=== PATIENT | male | born 2000 | race Caucasian/White ===

== ENCOUNTER 2024-05-05 08:54 | Inpatient (IN) | payer MEDICAID, SELFPAY ==
[2024-05-05] VITALS (10 sets, daily range): BP systolic 107–132; BP diastolic 49–73; PULSE 55–85; RESP 12–20; TEMP 36.6–38.3; O2SAT 96–100; BMI 21.2
--- NOTE | ~2024-05-05 | CT_ITS ---
EXAMINATION: CT ABDOMEN AND PELVIS WITH CONTRAST CLINICAL INFORMATION: Right lower quadrant pain. COMPARISON: None available. TECHNIQUE: Multidetector volumetric images were obtained from the superior aspect of the liver through the pubic symphysis following administration 85 mL of Omnipaque 350 intravenous contrast. Sagittal and coronal reformatted images were obtained on the technologist's workstation. Oral contrast: No This CT examination was performed using dose optimization techniques as appropriate, variously including the following: *Automated exposure control *Adjustment of mA and/or kV according to patient size (this includes techniques or standardized protocols for targeted exams where dose is matched to indication/reason for exam; i.e. extremities or head) *Use of iterative reconstruction technique DLP: 356 mGy centimeter. FINDINGS: LUNG BASES: No acute airspace disease in the included lungs or gross nodules. LIVER, GALLBLADDER, AND BILIARY TREE: Liver measures 15 cm. No focal mass. Hepatic veins and portal veins and intrahepatic portion of the IVC are grossly patent. Gallbladder is contracted. No pericholecystic fluid collection or gallbladder wall thickening. No intrahepatic or extrahepatic biliary ductal dilatation. PANCREAS: No focal mass. No peripancreatic fluid collection. No main pancreatic ductal dilatation. SPLEEN: 11 cm. No focal mass. ADRENAL GLANDS: No nodular lesions. KIDNEYS AND URETERS: No hydronephrosis. No gross renal mass. No gross nephrolithiasis. BLADDER: An. Linear calcifications in the right lower pelvis just posterior to the bladder posterior eccentric location. GASTROINTESTINAL TRACT: Appendix measures 9 mm in the distal/tip segments with mucosal enhancement and or appendiceal edema pattern. No appendicolith. No peripheral enhancing fluid collection. No pneumoperitoneum. The appendix is retrocecal. Small amount of fluid in the posterior peritoneal cavity. No intestinal obstruction pattern. No pneumatosis intestinalis. ABDOMINAL WALL: No umbilical hernia. LYMPH NODES: No lymphadenopathy. VASCULAR: No aneurysm or dissection, abdominal aorta. PELVIC VISCERA: Normal size prostate gland. Prominent seminal vesicles. OSSEOUS STRUCTURES: Spondylolysis pars interarticularis at L5-S1 with a 1 mm anterolisthesis likely congenital. Spina bifida occulta, S1. CT/CT abdomen pelvis w IV con IMPRESSION: Acute nonruptured appendicitis, distal segment with small amount of free fluid, peritoneal cavity and no overt abscess or pneumoperitoneum. Appendix is retrocecal. 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 Discussed with the requesting nurse practitioner in the emergency department Dr. Елена Alvarenga, at 2:11 PM on May 05, 2024. Fleischner guidelines were followed. Electronically signed by: Chirag Zamora MD 05/05/2024 02:17 PM [facility] [place]
--- NOTE | 2024-05-05 12:13 | ED.ABDPAIN ---
HPI - Abdominal Pain General Chief Complaint: Abdominal Pain Stated Complaint: Stomach Pain Time Seen by Provider: 05/05/24 11:24 Source: patient Mode of arrival: ambulatory Limitations: no limitations History of Present Illness ED Provider: Елена Alvarenga NP HPI narrative: Patient is a 23-year-old male who presents emergency department for evaluation. Reports that he awoke this morning around 07:00 with sudden onset pain to the right of his belly button that has migrated towards the right lower abdomen. He thought that perhaps he needed to go to the bathroom, he had a normal movement without diarrhea or straining no recent constipation but this did not change his pain. He denies associated nausea or vomiting, no recent fevers or chills, no trauma or injury. Denies any symptoms. Denies concern for sexually transmitted infection, no associated scrotal pain or swelling. Related Data Allergies Allergy/AdvReac Type Severity Reaction Status Date / Time avocado Allergy Itching Verified 05/05/24 09:01 banana Allergy Itching Verified 05/05/24 09:01 Review of Systems Review of Systems Yes all other systems are reviewed and are negative PMFSH Past Medical History Attestation statement: The following information was validated with the patient. Source: old records reviewed Social History Social History Smoked in Last 30 Days: No Use of substances other than those prescribed or required for medical reasons: No Advance Directives: No Advance Directives Information Provided: Yes Do you have a plan to hurt others: No Plan Physical Exam ED Vital Signs: Vital Signs - 24 hr 05/05/24 08:58 05/05/24 13:34 Temperature 98 F 98.1 F Pulse Rate 78 76 Respiratory Rate 18 16 Blood Pressure 116/61 117/68 Pulse Oximetry 98 99 Oxygen Delivery Method Room Air Room Air BMI result Body Mass Index 21.2 Appearance: Alert.?Oriented to person, place and time. No acute distress.?Normal affect. Eyes: Pupils equal, round and reactive to light.? ENT: Pharynx normal.?? Neck: Normal inspection.? Neck supple.?? CVS: Heart sounds normal. Normal heart rate and rhythm.? Pulses normal.?? Respiratory: No respiratory distress.? Lung sounds clear to auscultation bilaterally?? Abdomen: Flat, with notably toned abdominal musculature, with right lower quadrant tenderness upon palpation, positive rebound tenderness at McBurney's point. Negative psoas sign. Negative Rovsing sign. No CVA tenderness. Normoactive bowel sounds. No pulsatile mass.?? Skin: Skin warm and dry.? Normal skin color.? Extremities: No lower extremity edema.? Neuro: Moves all extremities spontaneously. Sensation intact bilaterally. No focal neuro deficits. Ambulates with normal steady gait. Course Reevaluation(s) Reevaluation #1: Received critical call from radiology regarding acute retrocecal appendicitis. Patient made aware of these findings. Consulting with General surgery, Dr. Hyde. Time: 14:10 Medical Decision Making Medical Decision Making MDM Narrative: Patient is a 23-year-old male with no reported past medical history presents for evaluation of sudden onset abdominal pain this morning as per HPI, exam has notable right lower quadrant tenderness upon palpation with rebound tenderness concerning for appendicitis, no associated symptoms to suggest renal colic, hydronephrosis, ureteral calculi, pyelonephritis, no associated gastrointestinal symptoms to suggest colitis or obstruction. Obtaining CT of the abdomen and pelvis for further evaluation. Reviewed serum labs; mild leukocytosis 11,400 with left shift, no anemia or thrombocytopenia. No electrolyte derangement. No TOMAS. LFTs and lipase within normal range. CRP is normal. Differential Diagnosis Differential Diagnoses: The differential diagnosis associated with the presentation includes (See narrative above) Admission/Observation Consideration of admission/observation: Escalation of care including admission/observation considered (See narrative above ) Consult Healthcare Provider Management of the patient was discussed with: Software Sales Executive (See course narrative) Lab Data [facility] Lab Attestation statement: I reviewed the patient's lab results. 05/05/24 12:10 05/05/24 12:10 Labs: Lab Results 05/05/24 Range/Units 12:10 WBC 11.4 H (4.8-10.8) X10*3/uL RBC 5.49 (4.60-5.80) X10*6/uL Hgb 15.5 (14.0-18.0) g/dl Hct 46.3 (42.0-52.0) % MCV 84.3 (80.0-98.0) fL MCH 28.2 (27.0-33.0) pg MCHC 33.5 (31.0-36.0) g/dl RDW 13.0 (11.0-16.0) % Plt Count 191 (160-400) X10*3/uL MPV 10.8 (9.4-12.4) fL Immature Gran % (Auto) 0.3 (0.0-0.4) % Neut % (Auto) 82.7 H (45-73) % Lymph % (Auto) 6.2 L (20-40) % [place] % (Auto) 10.3 (2-11) % Eos % (Auto) 0.2 (0-4) % Baso % (Auto) 0.3 (0-2) % Lymph # (Auto) 0.7 L (1.2-4.9) X10*3/uL [place] # (Auto) 1.2 (0.1-1.2) X10*3/uL Eos # (Auto) 0.0 (0.0-0.4) X10*3/uL Baso # (Auto) 0.0 (0.0-0.2) X10*3/uL Abs Immat Gran (auto) 0.04 H (0.00-0.03) X10*3/uL Absolute Neuts (auto) 9.5 H (2.0-8.3) x10*3/uL Absolute Nucleated RBC 0.000 (0.0-0.012) X10*3/uL Nucleated RBC % (auto) 0.0 (0.0-0.2) /100WBC Sodium 136 (135-145) mmol/L Potassium 4.4 (3.3-5.1) mmol/L Chloride 105 (96-108) mmol/L Carbon Dioxide 21 L (22-29) mmol/L Anion Gap 14 (12-20) BUN 12 (9-16) mg/dL Creatinine 0.96 (0.5-1.4) mg/dL Estim Creat Clear Calc 122.2 Estimated GFR > 60 Random Glucose 79 (60-115) mg/dL Calcium 9.6 (8.4-10.2) mg/dL Total Bilirubin 0.3 (0.0-1.0) mg/dL AST 30 (5-37) U/L ALT 20 (0-40) U/L Alkaline Phosphatase 79 (39-117) U/L C-Reactive Protein 0.18 (< or = 0.50) mg/dL Total Protein 8.3 H (6.5-8.0) g/dL Albumin 4.8 (3.5-5.0) g/dL Lipase 12 (8-78) U/L Radiology Impression Discussion of test interpretation with radiology: I have reviewed the radiologist's reading. Radiologist Impression: CT/CT abdomen pelvis w IV con IMPRESSION: Acute nonruptured appendicitis, distal segment with small amount of free fluid, peritoneal cavity and no overt abscess or pneumoperitoneum. Appendix is retrocecal. 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 Medications Administered Discontinued Medications Generic Name Dose Route Start Last Admin Trade Name Freq PRN Reason Stop Dose Admin Sodium Chloride 1,000 mls @ 999 mls/hr 05/05/24 13:30 05/05/24 13:33 Ns IV 05/05/24 14:30 999 mls/hr .Q1H1M SANJEEV Administration Iohexol 100 ml 05/05/24 13:57 05/05/24 13:57 Iohexol 350 Mg/Ml 100 Ml Infus..Btl IV 05/05/24 13:58 85 ml ONCE ONE Administration Discharge Plan Discharge Print Language: Upper Sorbian
[2024-05-05 12:18] LABS: MANUAL DIFF FLAG NO
[2024-05-05 12:20] LABS: Basophils Percent Auto 0.3 % (0-2); Eosinophils Percent Auto 0.2 % (0-4); Hematocrit 46.3 % (42.0-52.0); Hemoglobin 15.5 g/dl (14.0-18.0); Imm Gran Abs Auto 0.04 X10*3/uL (0.00-0.03); Imm Gran Pct Auto 0.3 % (0.0-0.4); Lymphocytes Absolute Auto 0.7 X10*3/uL (1.2-4.9); Lymphocytes Percent Auto 6.2 % (20-40); Mean Corpuscular HGB Conc 33.5 g/dl (31.0-36.0); Mean Corpuscular Hemoglobin 28.2 pg (27.0-33.0); Mean Corpuscular Volume 84.3 fL (80.0-98.0); Mean Platelet Volume 10.8 fL (9.4-12.4); Monocytes Absolute Auto 1.2 X10*3/uL (0.1-1.2); Monocytes Percent Auto 10.3 % (2-11); Neutrophils Absolute Auto 9.5 x10*3/uL (2.0-8.3); Neutrophils Percent Auto 82.7 % (45-73); Platelet Count 191 X10*3/uL (160-400); Red Blood Count 5.49 X10*6/uL (4.60-5.80); White Blood Count 11.4 X10*3/uL (4.8-10.8)
[2024-05-05 12:36] LABS: Alanine Aminotransferase 20 U/L (0-40); Albumin Level 4.8 g/dL (3.5-5.0); Alkaline Phosphatase 79 U/L (39-117); Anion Gap 14 (12-20); Aspartate Amino Transferase 30 U/L (5-37); Bilirubin Total 0.3 mg/dL (0.0-1.0); Blood Urea Nitrogen 12 mg/dL (9-16); Calcium 9.6 mg/dL (8.4-10.2); Carbon Dioxide 21 mmol/L (22-29); Chloride 105 mmol/L (96-108); Creatinine Clr Calc Pharmacy 122.2; Estimated Glomerular Filt Rate > 60; Glucose Random 79 mg/dL (60-115); Lipase 12 U/L (8-78); Potassium 4.4 mmol/L (3.3-5.1); Sodium 136 mmol/L (135-145); Total Protein 8.3 g/dL (6.5-8.0)
[2024-05-05 13:01] LABS: C Reactive Protein 0.18 mg/dL (< or = 0.50)
[2024-05-05] MEDS: 0.9 % Sodium Chloride 1,000 ML 999 ML IV (13:33)
--- NOTE | 2024-05-05 13:40 | PC.NURSE ---
PT Received IV, 20G in right AC pt medicated per MAY, waiting on CT scan.
[2024-05-05] MEDS: iohexoL 350 MG/ML 100 ML INFUS..BTL IV (13:57)
[2024-05-05] MEDS: cefTRIAXone sodium 1 GM VIAL IVPUSH (15:09)
[2024-05-05] MEDS: metroNIDAZOLE/NS 500 MG/100 ML PIGGYBACK 100 MG IV (15:32)
[2024-05-05 15:33] LABS: Lactic Acid 1.5 mmol/L (0.5-2.0)
--- NOTE | 2024-05-05 15:36 | P.HPGS_ITS ---
History of Present Illness History of Present Illness Date of Service: 05/05/24 Chief complaint: Stomach Pain Narrative: Danish Dukes is a 23 year old male with abdominal pain who comes in after it started this morning. It started more in the epigastric area in his now moved down to the lower right quadrant. No significant nausea or vomiting he felt like he had maybe a low-grade temperature. He was fine yesterday went to bed fine no sick contacts no unusual diet. Here his white count is little elevated and CT scan shows a retrocecal appendix with an inflamed tip. No fecaliths noted. Otherwise pretty healthy no previous surgical history of concern Review of Systems Review of Systems: Yes all other systems are reviewed and are negative PMFSH Social History Social History Smoked in Last 30 Days: No Use of substances other than those prescribed or required for medical reasons: No Advance Directives: No Advance Directives Information Provided: Yes Do you have a plan to hurt others: No Plan Meds Allergies Allergy/AdvReac Type Severity Reaction Status Date / Time avocado Allergy Itching Verified 05/05/24 09:01 banana Allergy Itching Verified 05/05/24 09:01 Active Medications: Current Medications Acetaminophen (Acetaminophen 325 Mg Tablet) 650 mg PO Q6H PRN PRN Reason: Pain, Mild 1-3,fever,headache Calcium Carbonate (Calcium Carbonate 750 Mg Tab.Chew) 750 mg PO Q4H PRN PRN Reason: Heartburn Metronidazole (Flagyl) 500 mg in 100 mls @ 100 mls/hr IV ONCE ONE Stop: 05/05/24 15:43 Last Admin: 05/05/24 15:32 Dose: 100 mls/hr Magnesium Hydroxide (Milk Of Magnesia 30 Ml Oral.Susp) 30 ml PO DAILY PRN PRN Reason: Constipation Melatonin (Melatonin 3 Mg Tablet) 6 mg PO BEDTIME PRN PRN Reason: Insomnia Sodium Chloride (0.9 % Sodium Chloride Flush 3 Ml Syringe) 3 ml IVFLUSH QSHIFT SANJEEV Physical Exam Vital Signs: Vital Signs: Last Vital Signs Temp 98.1 F 05/05/24 13:34 Pulse 76 05/05/24 13:34 Resp 16 05/05/24 13:34 BP 117/68 05/05/24 13:34 Pulse Ox 99 05/05/24 13:34 O2 Del Method Room Air 05/05/24 13:34 BMI result Body Mass Index 21.2 Const: General: cooperative, healthy appearing, comfortable and no acute distress Orientation/consciousness: patient oriented x3 Resp: Other: Lungs are clear Effort & Inspection: normal respiratory effort Cardio: Rate: regular rate Rhythm: regular rhythm GI: Other: Abdomen is soft nondistended tender in the right lower quadrant no guarding no rebound no peritoneal signs active bowel sounds no masses Skin: General skin exam: no rashes or lesions noted Neuro: General: patient oriented x3 Extrem: General: Yes full ROM Psych: Appearance: grossly normal Mental Status: mental status grossly nor mal Speech and movement: Normal speech and movement present Affect: normal affect Attitude: cooperative Thought process: Normal thought process present Results Results Labs: Short CBC 05/05/24 Range/Units 12:10 WBC 11.4 H (4.8-10.8) X10*3/uL Hgb 15.5 (14.0-18.0) g/dl Hct 46.3 (42.0-52.0) % Plt Count 191 (160-400) X10*3/uL BMP 05/05/24 12:10 Sodium 136 Potassium 4.4 Chloride 105 Carbon Dioxide 21 L BUN 12 Creatinine 0.96 Calcium 9.6 Liver Function 05/05/24 Range/Units 12:10 Total Bilirubin 0.3 (0.0-1.0) mg/dL AST 30 (5-37) U/L ALT 20 (0-40) U/L Alkaline Phosphatase 79 (39-117) U/L Albumin 4.8 (3.5-5.0) g/dL Abdomen CT scan report/results: report reviewed and image reviewed CT scan - pelvis: report reviewed and image reviewed Additional studies: MR#: [id number] : 2000 Acct:[id number] Age/Sex: 23 / M ADM Date: 05/05/24 Loc: HO.ED Attending Dr: Ordering Physician: Елена Alvarenga CNP Date of Service: 05/05/24 Procedure(s): CT abdomen pelvis w IV con Accession Number(s): [id number] cc: Елена Alvarenga CNP; Physician,None ~ Report Number: [id number]: Total DLP = 356.00 mGy-cm EXAMINATION: CT ABDOMEN AND PELVIS WITH CONTRAST CLINICAL INFORMATION: Right lower quadrant pain. COMPARISON: None available. TECHNIQUE: Multidetector volumetric images were obtained from the superior aspect of the liver through the pubic symphysis following administration 85 mL of Omnipaque 350 intravenous contrast. Sagittal and coronal reformatted images were obtained on the technologist's workstation. Oral contrast: No This CT examination was performed using dose optimization techniques as appropriate, variously including the following: *Automated exposure control *Adjustment of mA and/or kV according to patient size (this includes techniques or standardized protocols for targeted exams where dose is matched to indication/reason for exam; i.e. extremities or head) *Use of iterative reconstruction technique DLP: 356 mGy centimeter. FINDINGS: LUNG BASES: No acute airspace disease in the included lungs or gross nodules. LIVER, GALLBLADDER, AND BILIARY TREE: Liver measures 15 cm. No focal mass. Hepatic veins and portal veins and intrahepatic portion of the IVC are grossly patent. Gallbladder is contracted. No pericholecystic fluid collection or gallbladder wall thickening. No intrahepatic or extrahepatic biliary ductal dilatation. PANCREAS: No focal mass. No peripancreatic fluid collection. No main pancreatic ductal dilatation. SPLEEN: 11 cm. No focal mass. ADRENAL GLANDS: No nodular lesions. KIDNEYS AND URETERS: No hydronephrosis. No gross renal mass. No gross nephrolithiasis. BLADDER: An. Linear calcifications in the right lower pelvis just posterior to the bladder posterior eccentric location. GASTROINTESTINAL TRACT: Appendix measures 9 mm in the distal/tip segments with mucosal enhancement and or appendiceal edema pattern. No appendicolith. No peripheral enhancing fluid collection. No pneumoperitoneum. The appendix is retrocecal. Small amount of fluid in the posterior peritoneal cavity. No intestinal obstruction pattern. No pneumatosis intestinalis. ABDOMINAL WALL: No umbilical hernia. LYMPH NODES: No lymphadenopathy. VASCULAR: No aneurysm or dissection, abdominal aorta. PELVIC VISCERA: Normal size prostate gland. Prominent seminal vesicles. OSSEOUS STRUCTURES: Spondylolysis pars interarticularis at L5-S1 with a 1 mm anterolisthesis likely congenital. Spina bifida occulta, S1. CT/CT abdomen pelvis w IV con IMPRESSION: Acute nonruptured appendicitis, distal segment with small amount of free fluid, peritoneal cavity and no overt abscess or pneumoperitoneum. Appendix is retrocecal. 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 Discussed with the requesting nurse practitioner in the emergency department Dr. Елена Alvarenga, at 2:11 PM on May 05, 2024. Fleischner guidelines were followed. Electronically signed by: Chirag Zamora MD 05/05/2024 02:17 PM EST Dictated By: Chirag Miranda MD Signed By: <Electronically signed by Chirag Fernández MD in OV> 05/05/24 1417 DD/ 1344 TD/TT: 05/05/24 1401 Manager Of Operations: Assessment and Plan (1) Acute appendicitis: Status: Acute Plan 23-year-old male with right lower quadrant pain elevated white count CT scan showing retrocecal appendix with tip inflamed plan is to carry out laparoscopic appendectomy NPO IV fluids and IV antibiotics. Risks and benefits were discussed with the patient including but not limited to bleeding infection bowel injury abscess stump leak and despite this he wishes to proceed. We will plan on doing this this afternoon. Hopefully he can be discharged home either later or in the morning. Quality Stroke Does the patient have a stroke diagnosis?: No VTE Prior VTE?: No VTE Risk Level:: Surgical - low VTE Device Contraindication: N/A - Device Ordered VTE Drug Contraindication: Treatment Not Indicated Procedures Date of Service Date of Service: 05/05/24
[2024-05-05 15:51] LABS: Appearance Urine Clear; Color Urine Yellow; Glucose Urine UA Negative (Negative); Leukocyte Esterase Urine Negative (Negative); Nitrite Urine Negative (Negative); PH 6.5 (5.0-9.0); Specific Gravity - Urine >= 1.030 (1.005-1.025); Urine Blood Negative (Negative); Urine Ketones 15 mg/dL (Negative); Urine Protein Negative (Neg-Trace)
--- NOTE | 2024-05-05 16:00 | PC.NURSE ---
Patient in preop. Ate three packages of saltines at around 1300. Dr. Gonzales made aware. Per Dr. Hyde, surgical procedure can not be postponed.
--- NOTE | 2024-05-05 16:14 | P.CONAN_ITS ---
HPI - Anesthesia Eval Consult details Narrative: For lap appendectomy PMFSH Active Problems Active Problems: All Active Problems Acute appendicitis (Acute) Past Medical History Medical History (Updated 05/05/24 @ 15:53 by Natty Lira RN) Asthma Family History Family history of problems with anesthesia: No Surgical History Surgical History (Updated 05/05/24 @ 15:52 by Natty Lira RN) No pertinent past surgical history History of Problems with Anesthesia: No Social History Social History Are you a primary senior care provider to a significant other at home: No Do you presently have visiting nurse or other home services: No Patient Tobacco Use Status: Former Tobacco user Tobacco use type: Cigarette Years Smoked: 0.5 Smoked in Last 30 Days: No Use of substances other than those prescribed or required for medical reasons: No Have you been hit, kicked, punched, or otherwise hurt by someone within the past year? If so, by whom?: No Are you DNR?: No Advance Directives: No Advance Directives Information Provided: No Advance Directives on File: No Do you have a plan to hurt others: No Plan Recently lost weight without trying: No How much weight loss: Not applicable Eating poorly because of decreased appetite: No Nutrition screen score: 0 Nutrition Risks: No Nutritional Risk Poor oral hygiene: Yes (front tooth- small chip) Meds Allergies Allergy/AdvReac Type Severity Reaction Status Date / Time avocado Allergy Intermediate Itching Verified 05/05/24 15:51 banana Allergy Intermediate Itching Verified 05/05/24 15:51 Active Medications: Current Medications Acetaminophen (Acetaminophen 325 Mg Tablet) 650 mg PO Q6H PRN PRN Reason: Pain, Mild 1-3,fever,headache Calcium Carbonate (Calcium Carbonate 750 Mg Tab.Chew) 750 mg PO Q4H PRN PRN Reason: Heartburn Magnesium Hydroxide (Milk Of Magnesia 30 Ml Oral.Susp) 30 ml PO DAILY PRN PRN Reason: Constipation Melatonin (Melatonin 3 Mg Tablet) 6 mg PO BEDTIME PRN PRN Reason: Insomnia Sodium Chloride (0.9 % Sodium Chloride Flush 3 Ml Syringe) 3 ml IVFLUSH QSHIFT [facility] Home Medications ?Medication ?Instructions ?Recorded ?Confirmed ?Last Taken ?Type No Known Home Meds 05/05/24 05/05/24 Unknown History Exam Height,Weight and Vital Signs: Height 6 ft Weight 71 kg Last Vital Signs Temp 100.9 F H 02/07/25 16:00 Pulse 85 05/05/24 16:00 Resp 16 05/05/24 16:00 BP 132/73 05/05/24 16:00 Pulse Ox 97 05/05/24 16:00 O2 Del Method Room Air 05/05/24 16:00 Pertinent Lab Results Pertinent Lab Results: Laboratory Tests 05/05/24 05/05/24 05/05/24 12:10 15:07 15:34 WBC 11.4 H RBC 5.49 Hgb 15.5 Hct 46.3 MCV 84.3 MCH 28.2 MCHC 33.5 RDW 13.0 Plt Count 191 MPV 10.8 Immature Gran % (Auto) 0.3 Neut % (Auto) 82.7 H Lymph % (Auto) 6.2 L [place] % (Auto) 10.3 Eos % (Auto) 0.2 Baso % (Auto) 0.3 Lymph # (Auto) 0.7 L [place] # (Auto) 1.2 Eos # (Auto) 0.0 Baso # (Auto) 0.0 Abs Immat Gran (auto) 0.04 H Absolute Neuts (auto) 9.5 H Absolute Nucleated RBC 0.000 Nucleated RBC % (auto) 0.0 Sodium 136 Potassium 4.4 Chloride 105 Carbon Dioxide 21 L Anion Gap 14 BUN 12 Creatinine 0.96 Estim Creat Clear Calc 122.2 Estimated GFR > 60 Random Glucose 79 Lactic Acid 1.5 Calcium 9.6 Total Bilirubin 0.3 AST 30 ALT 20 Alkaline Phosphatase 79 C-Reactive Protein 0.18 Total Protein 8.3 H Albumin 4.8 Lipase 12 Urine Color Yellow Urine Appearance Clear Urine pH 6.5 Ur Specific [place] >= 1.030 H Urine Protein Negative Urine Glucose (UA) Negative Urine Ketones 15 Urine Blood Negative Urine Nitrite Negative Ur Leukocyte Esterase Negative Airway Mallampati Class: II TM Dist: >3cm Neck ROM: Full Loose/Missing/Broken Teeth: No Heart: ok Lungs: ok Assessment and Plan Assessment Anesthesia Assessment: Anesthesia Plan Discussed and Chart Reviewed Final Anesthetic Review Family History of Problems with Anesthesia: No History of Problems with Anesthesia: No NPO: No ASA Class: II and Emergency Final Preanesthetic Review: No Changes in Pt Med Stat, Meds/Allgs Chart Reviewed, Consent Obtained/Reviewed and Anes Risks/Benef Reviewed Patient Risk: Intermediate Procedure Risk: Intermediate Anesthetic Plan Anesthetic Plan: GA and Agree w/ Assess. and Plan Disposition: Standard PACU
--- NOTE | 2024-05-05 16:16 | ED.ABDPAIN ---
HPI - Abdominal Pain General Chief Complaint: Abdominal Pain Stated Complaint: Stomach Pain Time Seen by Provider: 05/05/24 11:24 Source: patient Mode of arrival: ambulatory Limitations: no limitations History of Present Illness ED Provider: rashard perez np. HPI narrative: This is a second note, on review of medical record it appears as though the initial note that was written somehow was canceled/deleted. Patient is a 23-year-old male presents emergency department for evaluation of lower abdominal pain, localized around the area of the belly button radiating to the right lower quadrant with onset this morning upon awakening. He thought this may be secondary to waiting to have a bowel movement, he reports that he went to the bathroom with ease but this did not alleviate his pain. He denies associated fevers, chills, nausea, vomiting, genitourinary symptoms, constipation, diarrhea, recent sick contacts. Denies history of similar pain. Related Data Home Medications ?Medication ?Instructions ?Recorded ?Confirmed No Known Home Meds 05/05/24 05/05/24 Allergies Allergy/AdvReac Type Severity Reaction Status Date / Time avocado Allergy Intermediate Itching Verified 05/05/24 15:51 banana Allergy Intermediate Itching Verified 05/05/24 15:51 Review of Systems Review of Systems Yes all other systems are reviewed and are negative PMFSH Past Medical History Attestation statement: The following information was validated with the patient. Source: old records reviewed Medical History Asthma Surgical History No pertinent past surgical history Social History Social History Are you a primary career manager to a significant other at home: No Do you presently have visiting nurse or other home services: No Patient Tobacco Use Status: Former Tobacco user Tobacco use type: Cigarette Years Smoked: 0.5 Smoked in Last 30 Days: No Use of substances other than those prescribed or required for medical reasons: No Have you been hit, kicked, punched, or otherwise hurt by someone within the past year? If so, by whom?: No Are you DNR?: No Advance Directives: No Advance Directives Information Provided: No Advance Directives on File: No Do you have a plan to hurt others: No Plan Recently lost weight without trying: No How much weight loss: Not applicable Eating poorly because of decreased appetite: No Nutrition screen score: 0 Nutrition Risks: No Nutritional Risk Poor oral hygiene: Yes (front tooth- small chip) Physical Exam ED Vital Signs: Vital Signs - 24 hr 05/05/24 08:58 05/05/24 13:34 05/05/24 16:00 Temperature 98 F 98.1 F 100.9 F H Pulse Rate 78 76 85 Respiratory Rate 18 16 16 Blood Pressure 116/61 117/68 132/73 Pulse Oximetry 98 99 97 Oxygen Delivery Method Room Air Room Air Room Air BMI result Body Mass Index 21.2 Appearance: Alert.?Oriented to person, place and time. No acute distress.?Normal affect. CVS: Heart sounds normal. Normal heart rate and rhythm.? Pulses normal.?? Respiratory: No respiratory distress.? Lung sounds clear to auscultation bilaterally?? Abdomen: Flat, notable tone to musculature, right sided abdominal tenderness upon palpation worse in the right lower quadrant with positive rebound tenderness. Negative psoas sign. Negative Rovsing sign.. Normoactive bowel sounds. No pulsatile mass.?? Skin: Skin warm and dry.? Normal skin color.? Extremities: No lower extremity edema.? ? Neuro: Moves all extremities spontaneously. Sensation intact bilaterally. Ambulates with normal steady gait. Course Reevaluation(s) Reevaluation #1: Received call from Radiology regarding acute appendicitis, contacted General surgery Dr. Hyde made aware of these findings, she will present to bedside to evaluate patient and discussed surgical options. He is well-appearing, nontoxic at this time. Patient to receive ceftriaxone and metronidazole IV. Time: 14:10 Medical Decision Making Medical Decision Making MDM Narrative: Patient is a 23-year-old male who presents emergency department for evaluation of periumbilical/right lower quadrant pain with onset this morning as per HPI. Exam concerning for appendicitis, CT of the abdomen and pelvis being obtained, lower suspicion for renal colic, pyelonephritis, hydronephrosis or ureteral calculi given lack of symptoms and no history of calculi in the past or recent infection. No associated gastrointestinal illness to suggest colitis, lower suspicion for obstruction/constipation. Differential Diagnosis Differential Diagnoses: The differential diagnosis associated with the presentation includes (See narrative above) Admission/Observation Consideration of admission/observation: Escalation of care including admission/observation considered (See course narrative) Consult Healthcare Provider Management of the patient was discussed with: Loss Prevention Coordinator (See course narrative) Lab Data MDM Lab Attestation statement: I reviewed the patient's lab results. CBC revealing a mild leukocytosis 11,400 with left shift no anemia or thrombocytopenia. No electrolyte derangement. No TOMAS. LFTs and lipase within normal range. CRP is normal. No lactic acidosis. Urinalysis without evidence of infection or microscopic hematuria. 05/05/24 12:10 05/05/24 12:10 Labs: Lab Results 05/05/24 05/05/24 05/05/24 Range/Units 12:10 15:07 15:34 WBC 11.4 H (4.8-10.8) X10*3/uL RBC 5.49 (4.60-5.80) X10*6/uL Hgb 15.5 (14.0-18.0) g/dl Hct 46.3 (42.0-52.0) % MCV 84.3 (80.0-98.0) fL MCH 28.2 (27.0-33.0) pg MCHC 33.5 (31.0-36.0) g/dl RDW 13.0 (11.0-16.0) % Plt Count 191 (160-400) X10*3/uL MPV 10.8 (9.4-12.4) fL Immature Gran % (Auto) 0.3 (0.0-0.4) % Neut % (Auto) 82.7 H (45-73) % Lymph % (Auto) 6.2 L (20-40) % [place] % (Auto) 10.3 (2-11) % Eos % (Auto) 0.2 (0-4) % Baso % (Auto) 0.3 (0-2) % Lymph # (Auto) 0.7 L (1.2-4.9) X10*3/uL [place] # (Auto) 1.2 (0.1-1.2) X10*3/uL Eos # (Auto) 0.0 (0.0-0.4) X10*3/uL Baso # (Auto) 0.0 (0.0-0.2) X10*3/uL Abs Immat Gran (auto) 0.04 H (0.00-0.03) X10*3/uL Absolute Neuts (auto) 9.5 H (2.0-8.3) x10*3/uL Absolute Nucleated RBC 0.000 (0.0-0.012) X10*3/uL Nucleated RBC % (auto) 0.0 (0.0-0.2) /100WBC Sodium 136 (135-145) mmol/L Potassium 4.4 (3.3-5.1) mmol/L Chloride 105 (96-108) mmol/L Carbon Dioxide 21 L (22-29) mmol/L Anion Gap 14 (12-20) BUN 12 (9-16) mg/dL Creatinine 0.96 (0.5-1.4) mg/dL Estim Creat Clear Calc 122.2 Estimated GFR > 60 Random Glucose 79 (60-115) mg/dL Lactic Acid 1.5 (0.5-2.0) mmol/L Calcium 9.6 (8.4-10.2) mg/dL Total Bilirubin 0.3 (0.0-1.0) mg/dL AST 30 (5-37) U/L ALT 20 (0-40) U/L Alkaline Phosphatase 79 (39-117) U/L C-Reactive Protein 0.18 (< or = 0.50) mg/dL Total Protein 8.3 H (6.5-8.0) g/dL Albumin 4.8 (3.5-5.0) g/dL Lipase 12 (8-78) U/L Urine Color Yellow Urine Appearance Clear Urine pH 6.5 (5.0-9.0) Ur Specific [place] >= 1.030 H (1.005-1.025) Urine Protein Negative (Neg-Trace) mg/dL Urine Glucose (UA) Negative (Negative) mg/dL Urine Ketones 15 (Negative) mg/dL Urine Blood Negative (Negative) Urine Nitrite Negative (Negative) Ur Leukocyte Esterase Negative (Negative) Radiology Impression Discussion of test interpretation with radiology: I have reviewed the radiologist's reading. Radiologist Impression: CT/CT abdomen pelvis w IV con IMPRESSION: Acute nonruptured appendicitis, distal segment with small amount of free fluid, peritoneal cavity and no overt abscess or pneumoperitoneum. Appendix is retrocecal. 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 External Record Review External record reviewed: Outpatient record Medications Administered Discontinued Medications Generic Name Dose Route Start Last Admin Trade Name Vonq PRN Reason Stop Dose Admin Ceftriaxone Sodium 1 gm 05/05/24 14:44 05/05/24 15:09 Ceftriaxone Sodium 1 Gm Vial IVPUSH 05/05/24 14:45 1 gm ONCE ONE Administration Sodium Chloride 1,000 mls @ 999 mls/hr 05/05/24 13:30 05/05/24 14:40 Ns IV 05/05/24 14:30 Infused .Q1H1M SANJEEV Infusion Metronidazole 500 mg in 100 mls @ 100 mls/hr 05/05/24 14:44 05/05/24 15:32 Flagyl IV 05/05/24 15:43 100 mls/hr ONCE ONE Administration Iohexol 100 ml 05/05/24 13:57 05/05/24 13:57 Iohexol 350 Mg/Ml 100 Ml Infus..Btl IV 05/05/24 13:58 85 ml ONCE ONE Administration Discharge Plan Discharge Patient Disposition: Admitted As Inpatient Interventions: Admission Worksheet (ED) Last Done: 05/05/24 15:44
--- NOTE | 2024-05-05 17:19 | P.OP_ITS ---
Operative Note Operative Note Date of Service: 05/05/24 Narrative: Preop diagnosis--acute appendicitis Postop diagnosis--acute appendicitis Procedure--[facility]aroscopic [facility]GET[facility] History--patient is a 23-year-old male comes into the hospital with a about a 8 hour history of abdominal pain epigastric going to the right lower quadrant tender in the right lower quadrant elevated white count and CT scan showing thickened distal appendix. As a result he comes in now for laparoscopic appendectomy Findings-- Acutely inflamed tip of the appendix Procedure-- patient was brought to the operative room under Anesthesia guidance was intubated. Compression stockings were placed before induction preoperative antibiotics had been given. His abdomen was prepped and draped in standard surgical fashion. He had urinated just before the case. An infraumbilical incision was created after numbing up the area with lidocaine with epinephrine. In the soft tissue and on the skin edge there was a little bit of a bleeder that was cauterized and once hemostasis here was good the fascia was grasped with Sosa's transected with a scalpel and 0 Vicryl pursestring suture placed. Yin trocar introduced. Pneumoperitoneum was established to 15 mmHg pressure. Two 5 mm ports were then placed under direct visualization using local 1 in the suprapubic area and 1 in the left lower quadrant area the appendix was noted under the cecum in the retrocecal area and was fished out and straightened out relatively easily. The base of the appendix looked fine but the tip definitely looked inflamed thickened and stiff. A window was made in the mesentery near t he appendix cecal junction and the Endo-GISSELL 45 purple load was fired across the base. The mesentery was then dissected with the LigaSure and the appendix was brought out into the port the infraumbilical port site and the entire port with the appendix inside was removed and the appendix sent off for pathology. Port was then reestablished and quickly the area was examined. The appendiceal cecal suture line was intact and there was no bleeding from the mesentery. There was no other findings of concern in the abdomen. Port sites were then removed under direct visualization in the infraumbilical pursestring suture approximated local was placed in all the port sites again and interrupted subcuticular sutures were used to approximate the skin edges. At the end of the case all sponge instrum ent and needle counts were correct. Estimated blood loss was about 10 cc. Specimens sent was the appendix. Patient was extubated returned stable to the recovery room
[2024-05-05] MEDS: Acetaminophen 1,000 MG/100 ML PIGGYBACK 400 MG IV (17:39)
[2024-05-05] MEDS: 0.9 % Sodium Chloride Flush 3 ML SYRINGE IVFLUSH ×2 (18:31→22:36)
[2024-05-05] MEDS: Piperacillin Sodium/Tazobactam 3.375 GM in 0.9 % Sodium Chloride 50 ML IV ×2 (18:32→22:35)
--- NOTE | 2024-05-05 18:42 | PHA.MEDREC ---
Addendum entered by Jb Gonzales [facility] 05/05/24 18:45: med rec reviewed Original Note: Pharmacy Consult ? Medication Reconciliation Pharmacy reviewed med rec done by nursing. No Known Home Meds confirmed and no claims found for patient.
[2024-05-05] MEDS: Ketorolac Tromethamine 15 MG/ML VIAL IVPUSH (22:30)
[2024-05-06 03:03] VITALS: BP 123/62; PULSE 71; RESP 18; TEMP 36.6; O2SAT 99
[2024-05-06] MEDS: Ketorolac Tromethamine 15 MG/ML VIAL IVPUSH ×2 (06:05→10:58)
[2024-05-06] MEDS: Piperacillin Sodium/Tazobactam 3.375 GM in 0.9 % Sodium Chloride 50 ML IV ×2 (06:08→11:00)
[2024-05-06 08:12] VITALS: BP 129/58; PULSE 65; RESP 18; TEMP 36.6; O2SAT 96
--- NOTE | 2024-05-06 09:14 | HO.POSTANES ---
Post Anesthesia Evaluation Post Anesthesia Evaluation Date of Service: 05/06/24 Vital Signs: Vital Signs Temp Pulse Resp BP Pulse Ox O2 Del Method 05/06/24 08:12 97.8 F 65 18 129/58 L 96 Room Air 05/06/24 03:03 97.9 F 71 18 123/62 99 Anesthesia: General Endotracheal-GETA Mental Status: Awake Pain Control: Satisfactory Nausea/Vomiting: None Hydration: Adequate Anesthesia-Related Issues: No Anes. Related Issues
--- NOTE | 2024-05-06 10:39 | MHC.CM.PN ---
Addendum entered by Reyna Lozano RN 05/06/24 14:40: Patient medically cleared for dc home self care via private transport. Original Note: PATIENT LIVES IN A HOME W/ HIS MOTHER. FUNCTIONALLY INDEPENDENT. DENIES USE OF DME OR SERVICES. NO INSURANCE OR PCP. REFERRAL SENT TO FINANCIAL SERVICES. PROVIDED [facility]. ALSO DISCUSSED LOCAL [facility] THAT ACCEPTED SLIDING SCALE AND HAVE INSURANCE NAVIGATORS TO ASSIST W/ [place] APPLICATION. NO HCP. CM PROVIDED EDUCATION AND OFFERED ASSISTANCE. PATIENT DECLINED. DP: HOME SELF CARE, MOTHER TO TRANSPORT. CM WILL CONTINUE TO FOLLOW.
[2024-05-06] MEDS: 0.9 % Sodium Chloride Flush 3 ML SYRINGE IVFLUSH (10:58)
--- NOTE | 2024-05-06 14:21 | P.DS_ITS ---
DS: Providers Provider Date of Service: 05/06/24 Date of admission: 05/05/24 16:41 Date of discharge: 05/06/24 Primary care physician: None Physician Admitting clinician: Lindsay Hyde Attending physician on discharge: Lindsay Hyde DS: Diagnosis Discharge Diagnosis (1) Acute appendicitis: Start date: 05/05/24 Status: Acute DS: Summary Hospital Course Hospital Course: pt admitted with acute appendicitis and underwent lap appy and kept overnight with iv antibitiotics. did well and dc next day Time Attestation Discharge Coordination Time (in mins): 25 Quality: Safe Use of Opioids Does Pt have an Active Cancer Diagnosis on the Problem List?: No Quality: Stroke Does the patient have a stroke diagnosis?: No Reason for No Anti-thrombotic at DC: Not indicated Reason for No Anticoagulant at DC: Not indicated Reason Not Initiating IV-Tpa: Not indicated Reason for No Statin at DC: Not indicated Physical Exam Vital Signs: Vital Signs: Last Vital Signs Temp 97.8 F 05/06/24 08:12 Pulse 65 05/06/24 08:12 Resp 18 05/06/24 08:12 BP 129/58 L 05/06/24 08:12 Pulse Ox 96 05/06/24 08:12 O2 Del Method Room Air 05/06/24 08:12 BMI result Body Mass Index 21.2 Const: General: cooperative, healthy appearing, comfortable and no acute distress GI: Other: abdo - soft mild distension tender at incisions - all bandages clean and dry DS: Data Data Completed and Pending Pending studies at discharge: Pending at discharge 05/05/24 17:05 Surgical [PTH] Routine Labs on day of discharge: Laboratory Results - last 24 hr 05/05/24 05/05/24 15:07 15:34 Lactic Acid 1.5 Urine Color Yellow Urine Appearance Clear Urine pH 6.5 Ur Specific [place] >= 1.030 H Urine Protein Negative Urine Glucose (UA) Negative Urine Ketones 15 Urine Blood Negative Urine Nitrite Negative Ur Leukocyte Esterase Negative Discharge Plan Discharge Anticipated Discharge Date/Time: 05/06/24 14:16 Patient Disposition: Home, Self-Care Discharge Diagnosis: acute appendicitis Referrals: Physician,None [Primary Care Provider] - 1 Week Discharge Medications: New ibuprofen 600 mg tablet 600 mg PO TID PRN (Reason: pain (scale score 7-10)) Qty: 14 0RF docusate sodium [Colace] 100 mg capsule 100 mg PO BID PRN (Reason: constipation) Qty: 14 0RF Discharge Orders: Discharge Order (Routine); Ordered 05/06/24 Ordered By: Lindsay Hyde Diet: Advance to usual diet Activity on Discharge: No heavy lifting Stand Alone Forms: Patient Portal Discharge page Print Language: Mongolian Care Plan Goals: pt to ambulate and walk regularly no lifting greater than 10 lbs Health Concerns: fever, chills, bleeding call MD office or come to the ER Plan of Treatment: cont with rest and walking no lifting and advancing of diet. no antibx or narcotic pain meds needed can shower with dressings on and then remove and shower on wednesday. call surgical office on wednesday for f/u appt end of the week or following week. Assessment: pt doing well s/p lap appy - dc home
[2024-05-06 14:43] VITALS: BP 119/58; PULSE 77; RESP 18; TEMP 36.4; O2SAT 100
== END 2024-05-06 14:45 | disposition home or self-care (01) | DRG 234 ==
LOC: HO.ED 15:04 → HO.SSS 15:10 → HO.S3 16:41
PROVIDERS: Nurse Practitioner Family; Admitting Provider Surgery; Emergency Provider Emergency Medicine Emergency Medical Services; Visit Provider Surgery
PROC: 0DTJ4ZZ Resection of Appendix, Percutaneous Endoscopic Approach (ICD-10-PCS; CPT 44970; principal; 2024-05-05 16:00)
DX: K35.80 Unspecified acute appendicitis (principal); Z87.891 Personal history of nicotine dependence
CPT/HCPCS: 44970; 36415; 74177; 80053; 81003; 83605; 83690; 85025; 86140; 87040; 88304; 99221; 99285; J0131; J0696; J1836; J1885; J2003; J2004; J2250; J2543; J2704; J3010; Q9967

== ENCOUNTER → 2024-05-05 13:20 | Outpatient (BNV) | payer SELFPAY | PROVIDERS: Emergency Provider Emergency Medicine Emergency Medical Services; Visit Provider Radiology Diagnostic Radiology | DX: R10.31 Right lower quadrant pain (principal) | CPT/HCPCS: 74177 ==

== ENCOUNTER → 2024-05-05 15:10 | Outpatient (BNV) | payer SELFPAY | PROVIDERS: Emergency Provider Emergency Medicine Emergency Medical Services; Visit Provider Surgery | DX: K35.80 Unspecified acute appendicitis (principal) | CPT/HCPCS: 44970; 99024; 99223 ==

== ENCOUNTER 2024-05-10 08:18 | Outpatient (AMB) | payer MEDICAID, SELFPAY ==
--- NOTE | 2024-05-10 08:23 | A.OFFVIS_ITS ---
Intake Visit Reasons: s/p lap appendectomy () Intake Note: Patient here s/p laparoscopic appendectomy by Dr. Hyde on 05-05-2024. Reports incision healing well. Patient c/o: no concerns. Never took rx pain meds. Lamination Builder Required: No Accompanied by: Self / Same As Patient Allergies avocado Allergy (Intermediate, Verified 05/10/24 08:28) Itching banana Allergy (Intermediate, Verified 05/10/24 08:28) Itching HPI Comments Details: Patient was status post laparoscopic appendectomy Dr. Hyde. All things considered, he is doing well. Starting a diet. Having regular bowel habits. He is increasing his activity level. Minimal incisional discomfort. [facility] [place] Medical History Asthma Surgical History No pertinent past surgical history Social History Household Members: Family Housing: Apartment Are you a primary eye care professional to a significant other at home: No Do you presently have visiting nurse or other home services: No Patient Tobacco Use Status: Former Tobacco user Tobacco use type: Cigarette Years Smoked: 0.5 service: No Physical Exam GI Other: Abdomen corpulent, soft, benign. All wounds clean dry and intact healing well Assessment & Plan Assessment & Plan (1) Status post laparoscopic appendectomy: Code(s): Z90.49 - Acquired absence of other specified parts of digestive tract Category: Medical Plan Patient will be given a note for out of work for the next 2 weeks time and then resume work with light duty 2 weeks after that. He should avoid strenuous activities during this interim. All questions answered. Patient will otherwise follow-up p.r.n.. Coding Level of Care Code Est Pt Level 3 (75987) Diagnoses Status post laparoscopic appendectomy Z90.49
== END 2024-05-10 08:34 | disposition home or self-care (01) ==
PROVIDERS: Visit Provider Surgery
DX: Z90.49 Acquired absence of other specified parts of digestive tract (principal)
CPT/HCPCS: 99213

== ENCOUNTER → 2024-05-10 08:18 | Outpatient (BNVA) | payer SELFPAY | PROVIDERS: Visit Provider Surgery | DX: Z48.815 Encounter for surgical aftercare following surgery on the digestive system (principal); Z90.49 Acquired absence of other specified parts of digestive tract | CPT/HCPCS: 99212 ==